=== PATIENT | male | born 1995 | race Asian ===

== ENCOUNTER 2016-03-28 04:11 | Emergency (ER) | payer BC, OTHER ==
[2016-03-28] MEDS ORDERED: OLANZapine 10 MG/2 ML VIAL IM ONE ×2 (04:19→04:25)
[2016-03-28] MEDS ORDERED: LORazepam 2 MG/ML INJ ONE ×2 (04:20→04:34)
[2016-03-28] MEDS ORDERED: LORazepam 2 MG/ML INJ IM ONE (04:25)
[2016-03-28] MEDS ORDERED: LORazepam 2 MG/ML INJ IVP ONE (04:48)
[2016-03-28 04:49] LABS: % IMMATURE GRANULYOCYTES 0.2 % (0.0-1.1); ABSOLUTE IMMATURE GRANULOCYTES 0.02 10^3/uL (0.00-0.10); ADD DIFF? NO; ADD MORPH? NO; ADD SCAN? NO; ATYPICAL LYMPHOCYTE FLAG 10 (0-99); FRAGMENT RBC FLAG 0 (0-99); HEMATOCRIT 52.1 % (40.0-51.0); HEMOGLOBIN 18.4 g/dL (13.7-17.5); LEFT SHIFT FLG 0 (0-99); LIPEMIA HEMOLYSIS FLAG 90 (0-99); MEAN CELL HEMOGLOBIN 30.1 pg (27.9-34.1); MEAN CELL HEMOGLOBIN CONCENTR. 35.3 g/dL (32.4-36.7); MEAN CELL VOLUME 85.3 fL (81.5-99.8); MEAN PLATELET VOLUME 9.1 fL (8.7-11.7); PLATELET CLUMPS FLAG 0 (0-99); PLATELET COUNT 385 10^3/uL (150-400); RED BLOOD CELL COUNT 6.11 10^6/uL (4.40-6.38); RED CELL DISTRIBUTION WIDTH 12.2 % (11.5-15.2)
[2016-03-28 04:57] LABS: ANION GAP 21 mEq/L (8-16); CALCIUM 9.3 mg/dL (8.5-10.4); CARBON DIOXIDE 25 mEq/l (22-31); CHLORIDE 104 mEq/L (97-110); CREATININE 0.9 mg/dL (0.7-1.3); ETHANOL SERUM 222 mg/dL (0-10); GLOMERULAR FILTRATION RATE > 60; GLUCOSE 117 mg/dL (70-100); SALICYLATE < 1.0 mg/dL (2.0-20.0); SODIUM 150 mEq/L (134-144)
--- NOTE | 2016-03-28 05:45 | EDPHY ---
HPI/HX/ROS/PE/MDM Narrative: Chief complaint: Agitation and suicidal ideation HPI: 20-year-old male was found in the passenger seat of his car with a screwdriver in his lap in superficial abrasions to his forearm. Per reports he had texted to friends that he was feeling suicidal and that he might stab himself with a screwdriver. Patient was uncooperative and agitated the police. They placed him on a mental health hold. Patient denies past medical history. Denies being suicidal ideation or homicidal. He denies drinking alcohol, smoking cigarettes or using any other recreational drugs this morning. Denies recent illness. When asked if he is feeling suicidal want to harm himself he is refusing to answer these questions. 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 ROS: Patient is refusing to answer any questions. Physical exam: Gen: Awake, Alert, agitated, uncooperative HEENT: Nose: no rhinorrhea Eyes: PERRLA, EOMI Mouth: Moist mucosa Neck: Supple, no JVD Chest: nontender, lungs clear to auscultation Heart: S1, S2 normal, no murmur Abd: Soft, non-tender, no guarding Back: no CVA tenderness, no midline tenderness Ext: no edema, non-tender Skin: no rash Neuro: CN II-XII intact, Sensation grossly intact, Strength 5/5 in bilateral upper and lower extremities ([place]) ED Course: Agitated 20-year-old male presenting on a M1 hold by police. Patient was found in his car with reported texting that he was suicidal. Patient is uncooperative here. He became increasingly agitated and aggressive. Patient became a threat made threatening gestures towards myself and staff. He was given IM Zyprexa and Ativan and required restraining. Patient is sleeping. He is out of restraints. Blood alcohol is noted to be 222. Will need sobriety for mental health evaluation. [address] Krishnan pending mental health evaluation. ([place]) MDM: 7:00 a.m. the patient's care is transferred to md. On my evaluation he is sleeping and controlled. He is awaiting sobriety and psychiatric evaluation. He has been medically cleared. 3:00 p.m. the patient is clinically sober and being evaluated by Mental Health. He is not yet provided a urine sample. Care transferred to Dr. González Coyle. (Javon Krishnan) 0925: Cori with [place] Dr. Crockett has seen and evaluated the patient he contracts for safety as a safety plan in place he is no longer suicidal he was intoxicated when he arrived here. He has, cooperative he agrees for discharge planning he has good safety plan, and follow-up in place. I will DC his mental hold. (González Coyle) - Data Points Laboratory Results: Laboratory Results 03/28/16 04:30 03/28/16 04:30 03/28/16 18:09 Urine Opiates Screen NEGATIVE (NEGATIVE) Urine Barbiturates NEGATIVE (NEGATIVE) Ur Phencyclidine Scrn NEGATIVE (NEGATIVE) Ur Amphetamine Screen NEGATIVE (NEGATIVE) U Benzodiazepines Scrn NON-NEGATIVE H (NEGATIVE) Urine Cocaine Screen NEGATIVE (NEGATIVE) U Marijuana (THC) Screen NEGATIVE (NEGATIVE) Medications Given: Discontinued Medications Sodium Chloride (Ns) 1,000 mls @ 0 mls/hr IV ONCE ONE PRN Reason: Wide Open Stop: 03/28/16 06:01 Last Admin: 03/28/16 06:00 Dose: 1,000 mls Lorazepam (Ativan Injection) 2 mg IVP EDNOW ONE Stop: 03/28/16 04:49 Last Admin: 03/28/16 04:40 Dose: 2 mg Lorazepam (Ativan Injection) 2 mg IM ONCE ONE Stop: 03/28/16 04:26 Last Admin: 03/28/16 04:25 Dose: 2 mg Olanzapine (Zyprexa Im Injection) 10 mg IM EDNOW ONE Stop: 03/28/16 04:26 Last Admin: 03/28/16 04:25 Dose: 10 mg General Time Seen by Provider: 03/28/16 04:14 Initial Vital Signs: Initial Vital Signs Heart Rate 137 H 03/28/16 04:44 Respiratory Rate 20 03/28/16 04:44 Blood Pressure 116/93 H 03/28/16 04:44 O2 Sat (%) 97 03/28/16 04:44 O2 Delivery Mode Room Air O2 (L/minute) 2 Allergies/Adverse Reactions: No Known Allergies Allergy (Unverified 04/04/11 10:15) Home Medications: Medication Instructions Recorded NO HOME MEDS 01/13/10 Departure - Departure Disposition: Home, Routine, Self-Care Clinical Impression: Suicidal ideation Alcohol intoxication Qualifiers: Complication of substance-induced condition: uncomplicated Qualifier Code: ( F10.120) Alcohol abuse with intoxication, uncomplicated Condition: Fair Instructions: Alcohol Intoxication (ED), Depression (ED) Additional Instructions: 1. return emergency if he has any worsening symptoms questions or concerns. Referrals: Patient,NotPresent [Unknown] - As per Instructions
[2016-03-28] MEDS ORDERED: NS 1,000 ML IV ONE (06:00)
[2016-03-28 21:50] VITALS: BP 120/74; PULSE 92; RESP 16; TEMP 98.4; O2SAT 100
== END 2016-03-28 21:53 | disposition home or self-care (01) ==
DX: S50.819A Abrasion of unspecified forearm, initial encounter (principal); F10.120 Alcohol abuse with intoxication, uncomplicated; X78.8XXA Intentional self-harm by other sharp object, initial encounter
CPT/HCPCS: 96374; G0477; G0480